=== PATIENT | male | born 1985 | race Caucasian/White ===

== ENCOUNTER 2016-11-03 16:55 | Emergency (ER) | payer OTHER ==
[~2016-11-03] VITALS: Ht 177.8 cm; Wt 96.4 kg
[~2016-11-03 16:55] MED LIST: LEVE750T PO; METH10CO11 PO; OMEG12006; VLT/75 PO; [UNRECOGNIZED DRUG - OTHER] PO
[2016-11-03 16:59] VITALS: TEMP 36.4; Ht 177.8 cm; Wt 96.4 kg
[2016-11-03] MEDS ORDERED: CARB1CAP8 PO ×2 (17:20)
[2016-11-03] MEDS ORDERED: NXM/40 PO (17:20)
[2016-11-03] MEDS ORDERED: MULT-506 PO (17:20)
[2016-11-03] MEDS ORDERED: IMT100 PO (17:20)
[2016-11-03] MEDS ORDERED: RANITIDINE HCL 50 MG/100 ML D5W IV STA (17:26)
[2016-11-03] MEDS ORDERED: LIDOCAINE HCL 2% VISC SOLN 20 ML UDC PO STA (17:26)
[2016-11-03] MEDS ORDERED: ALUMINUM/MAGNESIUM SUSP 30 ML UDC PO STA (17:26)
[2016-11-03] MEDS ORDERED: SODIUM CHLORIDE 0.9% 1000ML 1,000 ML IV STA (17:26)
[2016-11-03 17:52] VITALS: O2SAT 96
[2016-11-03 18:00] LABS: BASO % 0.4 %; BASO ABS # 0.03 K/uL (0-0.2); COMPLETE YES; EOS % 2.4 %; HEMATOCRIT 45.4 % (42-52); IG% 0.3 %; LYMPH ABS # 1.99 K/uL (1.2-3.4); MEAN CELL VOLUME 85.8 fL (80-100); MEAN CORPUSCULAR HEMOGLOBIN 30.1 pg (25-34); MEAN PLATELET VOLUME 9.7 fL (7.4-10.4); MONO % 10.2 %; NEUT % 59.7 %; PLATELET COUNT 164 K/uL (130-400); RED BLOOD COUNT 5.29 M/uL (4.7-6.1); WHITE BLOOD COUNT 7.36 K/uL (4.8-10.8)
[2016-11-03 18:07] LABS: PARTIAL THROMBOPLASTIN RATIO 0.9; PROTHROMBIN TIME (PATIENT) 10.4 SECONDS (9.0-12.0)
--- NOTE | 2016-11-03 18:15 | DIAGNOSTIC IMAGING REPORT ---
SINGLE VIEW CHEST CLINICAL HISTORY: GI bleeding. FINDINGS: An AP, portable, upright chest radiograph is obtained. No prior studies are available for comparison at the time of dictation. The examination is degraded by portable technique, apical lordotic positioning, and patient rotation. The cardiomediastinal silhouette is unremarkable. The lungs and pleural spaces are clear. No pneumothorax is seen. The bony thorax is grossly intact. IMPRESSION: No active disease in the chest. Electronically signed by: Travon Forte M.D. 11/03/2016 6:14 PM Dictated Date/Time: 11/03/2016 6:13 PM
[2016-11-03 18:22] LABS: BLOOD UREA NITROGEN 17 mg/dl (7-18); BUN/CREATININE RATIO 12.7 (10-20); CALCIUM 9.2 mg/dl (8.5-10.1); CARBON DIOXIDE 26 mmol/L (21-32); CHLORIDE 107 mmol/L (98-107); GLUCOSE 94 mg/dl (70-99); POTASSIUM 4.4 mmol/L (3.5-5.1); SODIUM 139 mmol/L (136-145)
[2016-11-03 18:25] LABS: ALKALINE PHOSPHATASE 91 U/L (45-117); ALT/SGPT 140 U/L (12-78); AST/SGOT 40 U/L (15-37)
[2016-11-03] MEDS ORDERED: MoRPHine SULFATE 4 MG/ML 1 ML CARP\\VIAL IV STA (18:52)
[2016-11-03] MEDS ORDERED: ONDANSETRON INJ 2 MG/ML 2 ML VIAL IV STA (18:52)
--- NOTE | 2016-11-03 21:00 | DIAGNOSTIC IMAGING REPORT ---
ULTRASOUND RIGHT UPPER QUADRANT ABDOMEN CLINICAL HISTORY: Epigastric abdominal pain. COMPARISON STUDY: Abdominal radiograph dated 12/06/2014. TECHNIQUE: Real-time, grayscale, and color flow sonography of the right upper quadrant of the abdomen was performed. Images are reviewed in the transverse and longitudinal planes. FINDINGS: Liver: The liver is top normal in size and demonstrates heterogeneously increased echotexture consistent with hepatic steatosis. There is no intrahepatic biliary ductal dilatation. The main portal vein is patent. Gallbladder: The gallbladder is normal in appearance. No gallstones are identified. There is no gallbladder wall thickening or pericholecystic fluid. A sonographic Dong's sign is reportedly absent. The common bile duct measures up to 0.5 cm in diameter. Pancreas: Visualized portions of the pancreatic head and body are normal in appearance. The splenic vein is patent. Right kidney: Survey images of the right kidney demonstrate normal size and echotexture. There is no hydronephrosis. Ascites: None. IMPRESSION: 1. No acute sonographic abnormal is identified. No gallstones are seen. 2. Hepatic steatosis. Electronically signed by: Travon Forte M.D. 11/03/2016 8:59 PM Dictated Date/Time: 11/03/2016 8:57 PM
[2016-11-03 22:11] VITALS: BP 128/76; PULSE 86; O2SAT 99
--- NOTE | 2016-11-03 23:07 | EMERGENCY ROOM VISIT NOTE ---
History First contact with patient: 17:13 Chief Complaint: ABDOMINAL PAIN Stated Complaint: ABD PAIN History of Present Illness The patient is a 31 year old male who presents to the Emergency Room with complaints of epigastric pain. The patient reports a history of severe esophagitis, undergoing an EGD on 10/23/16 at [facility] with Dr. Liam Hamilton. The patient had a previous EGD performed in August. Prior to his last EGD, he was on Nexium 40 mg twice daily, and was lowered to Nexium 40 mg daily. His next appointment is in mid November. The patient reports that he has had generalized epigastric discomfort since his procedure. The patient reports that he had black stools this past Friday and , but they have since cleared. He denies any pain radiating into the chest, neck, shoulder or back. He denies any nausea, vomiting, fever or chills. He has no alleviating or aggravating factors for his pain, and currently rates his discomfort a 6 out of 10. The patient is refraining from NSAIDs, alcohol and caffeine. Review of Systems HEENT: Denies dizziness, visual problems, hearing loss, tinnitus. Denies difficulty swallowing or oral lesions. PULMONARY: Denies cough, shortness of breath, sputum production or hemoptysis. CARDIOVASCULAR: Denies chest pain, palpitations, dyspnea on exertion, orthopnea or peripheral edema. GASTROINTESTINAL: Denies diarrhea, constipation, nausea or vomiting, otherwise see history of present illness. GENITOURINARY: Denies dysuria, frequency, urgency or nocturia. NEUROLOGIC: Denies history of epilepsy, CVA, TIA or chronic headaches. MUSCULOSKELETAL: Denies history of joint tenderness/swelling. SKIN: Denies rashes or lesions. PSYCHIATRIC: Denies history of depression or mental illness. ENDOCRINE: Denies history of diabetes or thyroid disorders. Past Medical/Surgical History Medical Problems: (1) Back strain (2) Seizure Surgical Problems: (1) Hx of tonsillectomy Family History Diabetes mellitus FH: seizures Social History Smoking Status: Current Every Day Smoker Alcohol Use: occasionally Marital Status: Housing Status: lives with family Occupation Status: employed Current/Historical Medications Scheduled Carbamazepine (Carbatrol Er), 200 MG PO QAM Carbamazepine (Carbatrol Er), 400 MG PO HS Esomeprazole Magnesium (Nexium), 40 MG PO DAILY Multivitamin (Multivitamin), 1 TAB PO DAILY Scheduled PRN Sumatriptan Succinate (Imitrex), 100 MG PO UD PRN for Migraine Allergies Coded Allergies: No Known Allergies (Unverified , 12/15/13) Physical Exam Vital Signs Date Time Temp Pulse Resp B/P (MAP) Pulse Ox O2 Delivery O2 Flow Rate FiO2 11/03/16 22:11 86 20 128/76 99 11/03/16 20:45 79 20 131/88 98 Room Air 11/03/16 18:55 80 20 126/86 98 11/03/16 17:52 96 Room Air 11/03/16 17:50 77 11/03/16 16:59 36.4 79 18 141/89 96 Room Air Physical Exam CONSTITUTIONAL: Healthy and well nourished. Alert and oriented X 3 with positive affect. Patient appears in mild to moderate discomfort with his epigastric pain. HEENT: Normocephalic, atraumatic. Pupils equal, round and reactive. No scleral icterus or conjunctival pallor. NECK: Full active range of motion without discomfort. No JVD or carotid bruits. RESPIRATORY: Clear to auscultation bilaterally with no wheezing, crackles, rhonchi or stridor. CARDIOVASCULAR: Regular rate and rhythm with no murmurs, rubs or gallops. GASTROINTESTINAL: Bowel sounds present in all quadrants. Should has generalized epigastric tenderness to palpation. No obvious hepatosplenomegaly. Negative CVA tenderness. Negative McBurney's point tenderness. No abdominal rigidity, guarding or rebound. MUSCULOSKELETAL: Full range of motion of all joints without discomfort. Patient has no tenderness to palpation over the xiphoid or lower chest wall. INTEGUMENTARY: No rash or other significant dermatologic conditions noted. HEMATOLOGIC: No ecchymosis or petechiae. NEUROLOGIC: No focal neurologic deficits noted. Medical Decision & Procedures ER Provider Diagnostic Interpretation: My interpretation of an ECG shows a normal sinus rhythm of [address] elevation or other conduction abnormality. My interpretation of a portable chest x-ray does not show any obvious subdiaphragmatic air, pneumothorax, pneumonia or cardiac prominence. Radiologist report is as follows: SINGLE VIEW CHEST CLINICAL HISTORY: GI bleeding. FINDINGS: An AP, portable, upright chest radiograph is obtained. No prior studies are available for comparison at the time of dictation. The examination is degraded by portable technique, apical lordotic positioning, and patient rotation. The cardiomediastinal silhouette is unremarkable. The lungs and pleural spaces are clear. No pneumothorax is seen. The bony thorax is grossly intact. IMPRESSION: No active disease in the chest. Limited abdominal ultrasound does not show any evidence for cholecystitis or other concerning findings. Radiologist report is as follows: ULTRASOUND RIGHT UPPER QUADRANT ABDOMEN CLINICAL HISTORY: Epigastric abdominal pain. COMPARISON STUDY: Abdominal radiograph dated 12/06/2014. TECHNIQUE: Real-time, grayscale, and color flow sonography of the right upper quadrant of the abdomen was performed. Images are reviewed in the transverse and longitudinal planes. FINDINGS: Liver: The liver is top normal in size and demonstrates heterogeneously increased echotexture consistent with hepatic steatosis. There is no intrahepatic biliary ductal dilatation. The main portal vein is patent. Gallbladder: The gallbladder is normal in appearance. No gallstones are identified. There is no gallbladder wall thickening or pericholecystic fluid. A sonographic Dong's sign is reportedly absent. The common bile duct measures up to 0.5 cm in diameter. Pancreas: Visualized portions of the pancreatic head and body are normal in appearance. The splenic vein is patent. Right kidney: Survey images of the right kidney demonstrate normal size and echotexture. There is no hydronephrosis. Ascites: None. IMPRESSION: 1. No acute sonographic abnormal is identified. No gallstones are seen. 2. Hepatic steatosis. Laboratory Results 11/03/16 17:46 Red Blood Count 5.29, Mean Corpuscular Volume 85.8, Mean Corpuscular Hemoglobin 30.1, Mean Corpuscular Hemoglobin Concent 35.0, Mean Platelet Volume 9.7, Neutrophils (%) (Auto) 59.7, Lymphocytes (%) (Auto) 27.0, Monocytes (%) (Auto) 10.2, Eosinophils (%) (Auto) 2.4, Basophils (%) (Auto) 0.4, Neutrophils # (Auto ) 4.39, Lymphocytes # (Auto) 1.99, Monocytes # (Auto) 0.75, Eosinophils # (Auto ) 0.18, Basophils # (Auto) 0.03 11/03/16 17:46 Test 11/03/16 17:46 White Blood Count 7.36 K/uL (4.8-10.8) Red Blood Count 5.29 M/uL (4.7-6.1) Hemoglobin 15.9 g/dL (14.0-18.0) Hematocrit 45.4 % (42-52) Mean Corpuscular Volume 85.8 fL (80-100) Mean Corpuscular Hemoglobin 30.1 pg (25-34) Mean Corpuscular Hemoglobin Concent 35.0 g/dl (32-36) Platelet Count 164 K/uL (130-400) Mean Platelet Volume 9.7 fL (7.4-10.4) Neutrophils (%) (Auto) 59.7 % Lymphocytes (%) (Auto) 27.0 % Monocytes (%) (Auto) 10.2 % Eosinophils (%) (Auto) 2.4 % Basophils (%) (Auto) 0.4 % Neutrophils # (Auto) 4.39 K/uL (1.4-6.5) Lymphocytes # (Auto) 1.99 K/uL (1.2-3.4) Monocytes # (Auto) 0.75 K/uL (0.11-0.59) Eosinophils # (Auto) 0.18 K/uL (0-0.5) Basophils # (Auto) 0.03 K/uL (0-0.2) RDW Standard Deviation 39.7 fL (36.4-46.3) RDW Coefficient of Variation 12.5 % (11.5-14.5) Immature Granulocyte % (Auto) 0.3 % Immature Granulocyte # (Auto) 0.02 K/uL (0.00-0.02) Prothrombin Time 10.4 SECONDS (9.0-12.0) Prothromb Time International Ratio 1.0 (0.9-1.1) Activated Partial Thromboplast Time 24.3 SECONDS (21.0-31.0) Partial Thromboplastin Ratio 0.9 Anion Gap 6.0 mmol/L (3-11) Est Creatinine Clear Calc Drug Dose 96.8 ml/min Estimated GFR () 84.9 Estimated GFR (Non- 73.2 BUN/Creatinine Ratio 12.7 (10-20) Calcium Level 9.2 mg/dl (8.5-10.1) Total Bilirubin 0.2 mg/dl (0.2-1) Direct Bilirubin < 0.1 mg/dl (0-0.2) Aspartate Amino Transf (AST/SGOT) 40 U/L (15-37) Alanine Aminotransferase (ALT/SGPT) 140 U/L (12-78) Alkaline Phosphatase 91 U/L (45-117) Total Creatine Kinase 99 U/L (39-308) Total Protein 7.0 gm/dl (6.4-8.2) Albumin 3.5 gm/dl (3.4-5.0) Lipase 201 U/L (73-393) Hepatitis B Surface Antigen NEG (NEG) Hepatitis C Antibody PRELIM POS (NEG) The above labs were reviewed. LFTs are elevated, otherwise remaining labs are grossly normal. The patient was unable to provide a stool sample, and refused stool Hemoccult rectal testing or digital rectal exam. Medications Administered Medications (Trade) Dose Ordered Sig/Macho Route Start Time Stop Time Status Last Admin Dose Admin Sodium Chloride 1,000 ml @ 999 mls/hr Q1H1M STAT IV 11/03/16 17:26 11/03/16 18:26 DC 11/03/16 17:51 999 MLS/HR Ranitidine HCl (zANTac IV) 50 mg NOW STAT IV 11/03/16 17:26 11/03/16 17:29 DC 11/03/16 17:51 50 MG Lidocaine HCl (Viscous Lidocaine 2% Soln) 10 ml NOW STAT PO 11/03/16 17:26 11/03/16 17:29 DC 11/03/16 17:52 10 ML Al Hydroxide/Mg Hydroxide (Maalox Susp) 30 ml NOW STAT PO 11/03/16 17:26 11/03/16 17:29 DC 11/03/16 17:52 30 ML Morphine Sulfate (MoRPHine SULFATE INJ) 4 mg NOW STAT IV 11/03/16 18:52 11/03/16 18:54 DC 11/03/16 19:02 4 MG Ondansetron HCl (Zofran Inj) 4 mg NOW STAT IV 11/03/16 18:52 11/03/16 18:54 DC 11/03/16 19:02 4 MG Procedure 1. IV hydration: The patient received a liter normal saline bolus 2. IV medications: Zantac 150 mg IVP ED Course Patient history and physical exam were performed. Nurse's notes were reviewed. Vital signs were reviewed and normal. The patient is normotensive and not tachycardic. He is also afebrile. His clinical exam shows epigastric tenderness to palpation. I also reviewed the patient's EKG report, showing a 4 cm hiatal hernia, erythematous mucosa in the antrum, Z line irregular, 37 cm from the incisors. This was biopsied. Duodenum was normal, and the hard rock drill operator mentions complete resolution of the previously noted esophagitis. His PPI was reduced to once daily. Given the patient's persistent symptoms, I did suggest performing additional lab work in case he does have an active bleed, which is unlikely since his stools have cleared. IV access was established, and labs were drawn. The patient was administered a liter normal saline and Zantac 150 mg IVP. He was also administered a GI cocktail. An ECG and portable chest x-ray were normal. Review of labs shows elevated LFTs, otherwise remaining labs were grossly normal. Given the elevated LFT values, I did elect to perform an ultrasound of the abdomen which showed no acute findings. The patient was unable to provide a stool sample for Hemoccult testing, and also refused digital rectal exam or swabbing. With elevated LFTs, I ordered a hepatitis panel. Whenever back in to discuss the patient's normal ultrasound results, his was present and wanted to know if his studies could be elevated because of the patient's history of hepatitis C virus. This was not included on the patient's history sheet which was also reviewed prior to workup and ordering the hepatitis panel. Without having prior labs for comparison, I suspect this explains his elevated transaminases. I did suggest that he follow-up with his hard rock drill operator for further reevaluation and to discuss further treatment options. He was instructed to seek further emergent reevaluation for any worsening melena, coffee-ground emesis, fever or other concerning symptoms. I did encourage him to continue with his Nexium 40 mg daily as prescribed by his hard rock drill operator , and also had Zantac and Maalox/Gaviscon as needed for additional symptomatic relief. He was instructed to refrain from alcohol, NSAIDs and caffeine. The patient voiced understanding of all discharge instructions, and rated his pain a 4 out of 10 at the conclusion of my exam. Medical Decision Patient presents with complaint of melanotic stool for 2 days that has since cleared. His workup today does not show any anemia, evidence for renal failure , pancreatitis, cholecystitis or abdominal free air. The patient does have elevated LFTs likely secondary to his history of hepatitis C virus. At this point I will defer further workup to the patient's hard rock drill operator. Impression Primary Impression: Epigastric pain Additional Impressions: Esophagitis Hepatitis C virus Departure Information Referrals Chi Burkett DO (PCP) Patient Instructions My [facility] Problem Qualifiers Additional Impressions: Hepatitis C virus Viral hepatitis chronicity: chronic Hepatic coma status: without hepatic coma Qualified Codes: B18.2 - Chronic viral hepatitis C
[2016-11-08 16:38] LABS: HEPATITIS C RNA TMA QUAL Detected
== END 2016-11-03 22:12 | disposition home or self-care (01) ==
LOC: C.EDB 16:56
DX: K20.8 Other esophagitis (principal); R10.13 Epigastric pain; B19.20 Unspecified viral hepatitis C without hepatic coma; G40.909 Epilepsy, unspecified, not intractable, without status epilepticus; F17.200 Nicotine dependence, unspecified, uncomplicated; Z79.899 Other long term (current) drug therapy; Z98.890 Other specified postprocedural states; Z83.3 Family history of diabetes mellitus; Z82.0 Family history of epilepsy and other diseases of the nervous system

== ENCOUNTER → 2016-11-13 | Outpatient (CLI) | payer OTHER ==
[~2016-11-13] MED LIST changes: +CARB1CAP8 PO; +GADAVIST IV PRN; +IMT100 PO; -LEVE750T PO; -METH10CO11 PO; +MULT-506 PO; +NXM/40 PO; -OMEG12006; -VLT/75 PO; -[UNRECOGNIZED DRUG - OTHER] PO
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
== END | disposition home or self-care (01) ==
LOC: C.MRIBC 10:51
PROVIDERS: ATTEND Psychiatry & Neurology Neurology
DX: D33.2 Benign neoplasm of brain, unspecified (principal); G40.909 Epilepsy, unspecified, not intractable, without status epilepticus

== ENCOUNTER 2020-09-26 20:36 | Observation (INO) ==
[2020-09-26 22:41] LABS: Basophils # (auto) 0.01 K/uL (0-0.2); Basophils % (auto) 0.1 %; Eosinophils # (auto) 0.01 K/uL (0-0.5); Eosinophils % (auto) 0.1 %; Hematocrit (blood only) 41.8 % (42-52); Hemoglobin 14.8 g/dL (14.0-18.0); Immature Granulocytes # (auto) 0.02 K/uL (0.00-0.02); Immature Granulocytes % (auto) 0.2 %; Lymphocytes # (auto) 0.84 K/uL (1.2-3.4); Lymphocytes % (auto) 8.2 %; Mean Corpuscular Hemoglobin 30.8 pg (25-34); Mean Corpuscular Hgb Conc 35.4 g/dL (32-36); Mean Corpuscular Volume 87.1 fL (80-100); Mean Platelet Volume 11.7 fL (7.4-10.4); Monocytes # (auto) 1.07 K/uL (0.11-0.59); Monocytes % (auto) 10.4 %; Neutrophils # (auto) 8.33 K/uL (1.4-6.5); Platelet Count 108 K/uL (130-400); RDW Coefficient of Variation 12.9 % (11.5-14.5); RDW Standard Deviation 41.2 fL (36.4-46.3); White Blood Count 10.28 K/uL (4.8-10.8)
[2020-09-26 22:48] LABS: Albumin Level 3.8 gm/dl (3.4-5.0); BUN Creatinine Ratio 15.5 (10-20); Calcium 9.3 mg/dl (8.5-10.1); Creatinine Clr Calc Pharmacy 125.8 ml/min; Est GFR (African American) 117.6 ml/min; Est GFR (Non-African American) 101.4 ml/min; Potassium 3.7 mmol/L (3.5-5.1)
[2020-09-26 22:50] LABS: Albumin Globulin Ratio 1.1 (0.9-2); Bilirubin,Total 1.1 mg/dl (0.2-1); Globulin 3.4 gm/dl (2.5-4.0); Total Protein 7.2 gm/dl (6.4-8.2)
[2020-09-26] MEDS ORDERED: SODIUM CHLORIDE 0.9% 1000ML 1,000 ML IV ONE (22:51)
[2020-09-26] MEDS ORDERED: ACETAMINOPHEN 1,000 MG/100 ML VIAL IV STA (22:51)
[2020-09-26] MEDS ORDERED: HYDROmorphone INJ 1 MG/ML SYRINGE IV PRN (22:51)
[2020-09-26] MEDS ORDERED: ONDANSETRON INJ 2 MG/ML 2 ML VIAL IV STA (22:52)
[2020-09-26] MEDS ORDERED: OPTIRAY 320 100ml IV ONE (23:30)
[2020-09-26 23:44] LABS: Appearance Urine Clear (Clear); Bilirubin Urine Negative (Negative); Blood Urine Negative (Negative); Color Urine Yellow; Glucose Urine UA Negative (Negative); Ketones Urine 2+ (Negative); Leukocyte Esterase Urine Negative (Negative); Nitrite Urine Negative (Negative); Protein Urine Negative (Negative); Specific Gravity Urine 1.017 (1.000-1.030); Urobilinogen Urine Negative (Negative); pH Urine >= 9.0 (4.5-7.5)
[2020-09-27] MEDS ORDERED: PIPERACILL/TAZOBAC CONSULT ACTIVE PRN ×2 (00:09→02:35)
[2020-09-27] MEDS ORDERED: PIPERACILLIN/TAZOBACTAM 4.5 GM/120 ML BAG IV ONE (00:09)
[2020-09-27] MEDS ORDERED: levoFLOXacin/D5W 750 MG/150 ML BAG IV STA (00:09)
--- NOTE | 2020-09-27 00:54 | Emergency Department Note ---
Impression & Plan Aspiration pneumonia of left lower lobe ED Provider Note NAME: EFE CAMACHO AGE: 35 SEX: M : 1985 ARRIVES VIA: Walk-In INFORMANT: Patient, ED PROVIDER(S): Christophe Arce MD CHIEF COMPLAINT: abd pain, chills, HPI: This is a 35-year-old male who presents emergency department complaining of abdominal pain and chills. The patient reports he had a colonoscopy done earlier today. He reports he got home and ate a meal. Since that time he has been vomiting complaining of abdominal pain as well as chills. He reports he has not taken anything for the vomiting and nothing appears to make the chills any better or worse. He describes the pain as a cramping sensation in his suprapubic area with radiation into the back. ROS: See above HPI for pertinent positives & negatives. A total of 10 systems reviewed and were otherwise negative. PAST MEDICAL HISTORY: See Below PAST SURGICAL HISTORY: See Below FAMILY HISTORY: See Below SOCIAL HISTORY: See Below HOME MEDICATIONS: See Below ALLERGIES: See Below VITALS: See Below PHYSICAL EXAMINATION: VITAL SIGNS - Vital signs and nursing notes were reviewed. GENERAL - 35-year-old male appearing stated age who is in no acute distress. Communicates well with provider and answers questions appropriately. SKIN - Without rashes. HEAD - NC/AT. EYES - PERRL with EOMI bilaterally. Sclera anicteric. Palpebral conjunctiva pink and moist with no injection noted. EARS - No deformities of external structures noted on gross examination bilaterally. NOSE - Midline and without cyanosis. No epistaxis or purulent drainage noted. Septum midline without deviation or septal hematoma noted. MOUTH/OROPHARYNX - Without perioral cyanosis. Buccal mucosa pink and moist and without leukoplakia. Tongue midline with equal elevation of palate bilaterally. No tonsillar hypertrophy, erythema, or exudates noted. NECK - Neck with FROM. Supple to palpation. No nuchal rigidity. LUNGS - Chest wall symmetric without accessory muscle use, intercostals retractions, or central cyanosis. Normal vesicular breath sounds CTA B/L. No wheezes, rales, or rhonchi appreciated. CARDIAC - RRR with S1/S2. No murmur, rubs, or gallops appreciated. ABDOMEN - Abdominal contour without pulsations or visible masses. BS normoactive all four quadrants. No tenderness, palpable masses, hepatosplenomegaly, or ascites noted. EXTREMITIES - No clubbing or peripheral cyanosis. No pretibial edema present. +3/5 radial, posterior tibial, and dorsalis pedis pulses palpated throughout. +5/5 strength noted in UE/LE bilaterally. NEUROLOGIC - Cranial nerves II through XII grossly intact. Sensory intact to light touch throughout. Patellar reflexes +2/4. PSYCH - A&Ox3 and cooperates fully with examiner. Pt is very pleasant and interacts well with examiner. MEDICAL DECISION MAKING: Patient was seen and evaluated as above in room A10. Review was performed of nursing notes and vital signs. I did review pertinent previous visits and patient history. After obtaining a thorough history and physical examination the above work up was performed. This is a 35-year-old male who presents emergency department complaining of rigors and chills along with vomiting. Using shared medical decision making with the patient he was sent for CAT scan of the abdomen and pelvis this is concerning for pneumonia in the lower lungs. Patient was reswabbed for Covid. He does have an elevation his white blood cell count. I did discuss the case with the platform worker we agreed to have the patient admitted overnight for observation. An order was placed for continuous cardiac monitoring. The monitor shows a rate of 93 with Normal Sinus rhythm. The patient was evaluated during a period of high volume and high acuity during the global COVID-19 pandemic, and that diagnosis was suspected/considered upon their initial presentation. Their evaluation, treatment and testing was consistent with current guidelines for patients who present with complaints or symptoms that may be related to COVID-19. Patient was seen while provider was wearing PPE. Triage Nursing notes reviewed. Prior medical records reviewed Vital Signs: reviewed and remarkable for no significant abnormalities Differential diagnosis: Reactive airway disease, pneumonia, pneumothorax, COPD, CHF, infections, cardiac ischemia, pulmonary embolism, musculoskeletal, gastrointestinal, as well as other pathologies. ER treatment provided: See below Laboratory studies: As stated above and show below. Imaging studies: Chest x-ray is concerning for left lower lobe pneumonia. CT abdomen pelvis with contrast: Normal appendix. No acute abnormality along the GI tract. Airspace opacities in the left lower lobe. Pneumonia or aspiration can cause this appearance. Liver gallbladder pancreas spleen and kidneys are unremarkable. 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" GERD (gastroesophageal reflux disease) Grand mal seizure LAST EVENT OCTOBER 2019 Hx of hepatitis C TREATED IN PAST Hypersomnia Migraine headache Surgical History Family history of reaction to anesthesia GRANDMOTHER SLOW TO WAKE UP History of anesthesia reaction SLOW TO WAKE UP History of arthroscopy RT/LEFT SHOULDER SURGERY History of esophagogastroduodenoscopy (EGD) History of tonsillectomy and adenoidectomy Hx of dilation of urethra [place] teeth removed Family History Mother Stroke Seizure Grandmother Kidney stones Uncle Diabetes Social History Smoking Status: Never smoker Second Hand Exposure: No; Hx Alcohol Use: Yes Alcohol type: wine Preferred Language: Tristanian Communication Ability: Effective Bird Tender Required: No Beliefs That Will Affect Care: Orthodoxy Orthodoxy Beliefs: JEHOVAH WITNESS Current Living Situation: Family Feels Safe at Home: Yes Assistive Devices: None Allergies Allergies Allergy/AdvReac Type Severity Reaction Status Date / Time No Known Allergies Allergy Verified 09/26/20 14:21 Home Meds Home Medications Medication Instructions Recorded Confirmed pantoprazole 40 mg tablet,delayed 40 mg PO BID 05/06/19 09/26/20 release Marijuana Dry [place] 1 dose INHALATION UD PRN 06/25/20 09/26/20 Marijuana Tincture 1 ml PO HS PRN 06/25/20 09/26/20 magnesium oxide 400 mg PO DAILY 07/10/20 09/26/20 diclofenac sodium 50 mg PO BID 09/25/20 09/26/20 multivitamin 1 tab PO DAILY 09/25/20 09/26/20 omega-3 fatty acids 1,000 mg PO DAILY 09/25/20 09/26/20 Previous Rx's Medication Instructions Recorded divalproex 500 mg tablet,delayed 1,000 mg PO BID 30 Days #120 tab 05/23/20 release sumatriptan succinate 100 mg tablet 100 mg PO .COMPLEX PRN #9 tab 08/17/20 brivaracetam 100 mg tablet 100 mg PO .COMPLEX #30 tab 08/30/20 brivaracetam 50 mg tablet 50 mg PO .COMPLEX #30 tab 08/30/20 amoxicillin-pot clavulanate 1 tab PO BID #10 tab 09/27/20 [Augmentin] Results & Data (ED) Vital Signs Vital Signs - 24 hr 09/26/20 20:43 09/26/20 22:00 09/26/20 22:05 Temperature 37.5 C Temperature Source Temporal Artery Scan Pulse Rate 108 H 88 94 H Pulse Rate [Right] Pulse Rate from SpO2 Sensor 90 95 H Respiratory Rate 16 27 H 31 H Respiratory Effort / Characteristics Non-Labored Spontaneous Respiratory Depth Normal Respiratory Pattern Regular Blood Pressure 158/78 H 136/80 Blood Pressure [Right Arm] Blood Pressure Mean 104 98 Blood Pressure Mean [Right Arm] Blood Pressure Position Sitting Blood Pressure Position [Right Arm] Pulse Oximetry 96 95 96 Oxygen Delivery Method Room Air Sepsis Recent Fever Within 48 Hours No Sepsis New/Unexplained Change in Mental Status No Sepsis Action Taken by Nursing No Action Required 09/26/20 22:10 09/26/20 22:15 09/26/20 22:20 Temperature Temperature Source Pulse Rate 100 H 92 H 94 H Pulse Rate [Right] Pulse Rate from SpO2 Sensor 101 H 93 H 94 H Respiratory Rate 20 26 H 26 H Respiratory Effort / Characteristics Respiratory Depth Respiratory Pattern Blood Pressure 139/81 Blood Pressure [Right Arm] Blood Pressure Mean 100 Blood Pressure Mean [Right Arm] Blood Pressure Position Blood Pressure Position [Right Arm] Pulse Oximetry 95 95 96 Oxygen Delivery Method Sepsis Recent Fever Within 48 Hours Sepsis New/Unexplained Change in Mental Status Sepsis Action Taken by Nursing 09/26/20 22:30 09/26/20 22:31 09/26/20 22:40 Temperature Temperature Source Pulse Rate 94 H 96 H 95 H Pulse Rate [Right] Pulse Rate from SpO2 Sensor 93 H 96 H 95 H Respiratory Rate 30 H 27 H 26 H Respiratory Effort / Characteristics Respiratory Depth Respiratory Pattern Blood Pressure 138/77 Blood Pressure [Right Arm] Blood Pressure Mean 97 Blood Pressure Mean [Right Arm] Blood Pressure Position Blood Pressure Position [Right Arm] Pulse Oximetry 95 96 96 Oxygen Delivery Method Sepsis Recent Fever Within 48 Hours Sepsis New/Unexplained Change in Mental Status Sepsis Action Taken by Nursing 09/26/20 22:46 09/26/20 22:50 09/26/20 23:00 Temperature Temperature Source Pulse Rate 95 H 97 H 91 H Pulse Rate [Right] Pulse Rate from SpO2 Sensor 96 H 95 H 92 H Respiratory Rate 14 15 22 Respiratory Effort / Characteristics Respiratory Depth Respiratory Pattern Blood Pressure 114/73 124/79 Blood Pressure [Right Arm] Blood Pressure Mean 86 94 Blood Pressure Mean [Right Arm] Blood Pressure Position Blood Pressure Position [Right Arm] Pulse Oximetry 96 94 96 Oxygen Delivery Method Sepsis Recent Fever Within 48 Hours Sepsis New/Unexplained Change in Mental Status Sepsis Action Taken by Nursing 09/26/20 23:01 09/26/20 23:13 Temperature Temperature Source Pulse Rate 93 H Pulse Rate [Right] 93 H Pulse Rate from SpO2 Sensor 91 H Respiratory Rate 19 16 Respiratory Effort / Characteristics Non-Labored Spontaneous Respiratory Depth Normal Respiratory Pattern Blood Pressure Blood Pressure [Right Arm] 124/79 Blood Pressure Mean Blood Pressure Mean [Right Arm] 94 Blood Pressure Position Blood Pressure Position [Right Arm] Lying Pulse Oximetry 97 95 Oxygen Delivery Method Room Air Sepsis Recent Fever Within 48 Hours Sepsis New/Unexplained Change in Mental Status Sepsis Action Taken by Nursing Laboratory Data Result diagrams: 09/26/20 21:45 09/26/20 21:45 Lab Results 09/26/20 09/26/20 09/26/20 Range/Units 21:35 21:45 21:45 WBC 10.28 (4.8-10.8) K/uL RBC 4.80 (4.7-6.1) M/uL Hgb 14.8 (14.0-18.0) g/dL Hct 41.8 L (42-52) % MCV 87.1 (80-100) fL MCH 30.8 (25-34) pg MCHC 35.4 (32-36) g/dL RDW Std Deviation 41.2 (36.4-46.3) fL RDW Coeff of Kendra 12.9 (11.5-14.5) % Plt Count 108 L (130-400) K/uL MPV 11.7 H (7.4-10.4) fL Immature Gran % (Auto) 0.2 % Neut % (Auto) 81.0 % Lymph % (Auto) 8.2 % [place] % (Auto) 10.4 % Eos % (Auto) 0.1 % Baso % (Auto) 0.1 % Neut # (Auto) 8.33 H (1.4-6.5) K/uL Lymph # (Auto) 0.84 L (1.2-3.4) K/uL [place] # (Auto) 1.07 H (0.11-0.59) K/uL Eos # (Auto) 0.01 (0-0.5) K/uL Baso # (Auto) 0.01 (0-0.2) K/uL Immature Gran # (Auto) 0.02 (0.00-0.02) K/uL Sodium 137 (136-145) mmol/L Potassium 3.7 (3.5-5.1) mmol/L Chloride 105 (98-107) mmol/L Carbon Dioxide 27 (21-32) mmol/L Anion Gap 5.0 (3-11) BUN 15 (7-18) mg/dl Creatinine 0.97 (0.6-1.4) mg/dl Est Cr Clr Drug Dosing 125.8 ml/min Est GFR ( Amer) 117.6 ml/min Est GFR (Non-Af Amer) 101.4 ml/min BUN/Creatinine Ratio 15.5 (10-20) Glucose 86 (70-99) mg/dl Calcium 9.3 (8.5-10.1) mg/dl Total Bilirubin 1.1 H (0.2-1) mg/dl AST 20 (15-37) U/L ALT 30 (12-78) U/L Alkaline Phosphatase 66 (45-117) U/L Total Protein 7.2 (6.4-8.2) gm/dl Albumin 3.8 (3.4-5.0) gm/dl Globulin 3.4 (2.5-4.0) gm/dl Albumin/Globulin Ratio 1.1 (0.9-2) Urine Color Yellow Urine Appearance Clear (Clear) Urine pH >= 9.0 H (4.5-7.5) Ur Specific [place] 1.017 (1.000-1.030) Urine Protein Negative (Negative) Urine Glucose (UA) Negative (Negative) Urine Ketones 2+ H (Negative) Urine Blood Negative (Negative) Urine Nitrite Negative (Negative) Urine Bilirubin Negative (Negative) Urine Urobilinogen Negative (Negative) Ur Leukocyte Esterase Negative (Negative) COVID-19 Eval Order SARS-CoV-2 (PCR) (Negative) 09/27/20 09/27/20 Range/Units 00:15 00:15 WBC (4.8-10.8) K/uL RBC (4.7-6.1) M/uL Hgb (14.0-18.0) g/dL Hct (42-52) % MCV (80-100) fL MCH (25-34) pg MCHC (32-36) g/dL RDW Std Deviation (36.4-46.3) fL RDW Coeff of Kendra (11.5-14.5) % Plt Count (130-400) K/uL MPV (7.4-10.4) fL Immature Gran % (Auto) % Neut % (Auto) % Lymph % (Auto) % [place] % (Auto) % Eos % (Auto) % Baso % (Auto) % Neut # (Auto) (1.4-6.5) K/uL Lymph # (Auto) (1.2-3.4) K/uL [place] # (Auto) (0.11-0.59) K/uL Eos # (Auto) (0-0.5) K/uL Baso # (Auto) (0-0.2) K/uL Immature Gran # (Auto) (0.00-0.02) K/uL Sodium (136-145) mmol/L Potassium (3.5-5.1) mmol/L Chloride (98-107) mmol/L Carbon Dioxide (21-32) mmol/L Anion Gap (3-11) BUN (7-18) mg/dl Creatinine (0.6-1.4) mg/dl Est Cr Clr Drug Dosing ml/min Est GFR ( Amer) ml/min Est GFR (Non-Af Amer) ml/min BUN/Creatinine Ratio (10-20) Glucose (70-99) mg/dl Calcium (8.5-10.1) mg/dl Total Bilirubin (0.2-1) mg/dl AST (15-37) U/L ALT (12-78) U/L Alkaline Phosphatase (45-117) U/L Total Protein (6.4-8.2) gm/dl Albumin (3.4-5.0) gm/dl Globulin (2.5-4.0) gm/dl Albumin/Globulin Ratio (0.9-2) Urine Color Urine Appearance (Clear) Urine pH (4.5-7.5) Ur Specific [place] (1.000-1.030) Urine Protein (Negative) Urine Glucose (UA) (Negative) Urine Ketones (Negative) Urine Blood (Negative) Urine Nitrite (Negative) Urine Bilirubin (Negative) Urine Urobilinogen (Negative) Ur Leukocyte Esterase (Negative) COVID-19 Eval Order Covid19 at [facility] SARS-CoV-2 (PCR) NEGATIVE (Negative) Administered Medications Discontinued Medications Acetaminophen (Acetaminophen 325 Mg Tab) 650 mg PO Q4H PRN PRN Reason: Pain or Fever Stop: 10/27/20 02:34 Last Admin: 09/27/20 04:22 Dose: 650 mg Documented by: [id number] Diclofenac Sodium (Diclofenac Sodium 25 Mg Tabdr) 50 mg PO BID MARISELA Stop: 10/27/20 08:59 Last Admin: 09/27/20 07:42 Dose: 50 mg Documented by: [id number] Divalproex Sodium (Divalproex Delay Release 500 Mg Tab) 1,000 mg PO BID MARISELA Stop: 10/27/20 08:59 Last Admin: 09/27/20 07:41 Dose: 1,000 mg Documented by: [id number] Fish Oil ([place]-3 (Purified Fish Oil) 1 Gm Cap) 1 gm PO DAILY MARISELA Stop: 10/27/20 08:59 Last Admin: 09/27/20 07:42 Dose: 1 gm Documented by: [id number] Hydromorphone HCl (Hydromorphone Inj 1 Mg/Ml Syringe) 1 mg IV Q15M PRN PRN Reason: Pain Stop: 10/10/20 22:50 Last Admin: 09/26/20 23:06 Dose: 1 mg Documented by: [id number] Sodium Chloride (Nss 1000ml) 1,000 mls @ 999 mls/hr IV .Q1H1M ONE Stop: 09/26/20 23:51 Last Infusion: 09/27/20 00:07 Dose: 0 mls/hr Documented by: [id number] Admin: 09/26/20 23:06 Dose: 999 mls/hr Documented by: [id number] Acetaminophen (Ofirmev) 1,000 mg in 100 mls @ 400 mls/hr IV NOW STA Stop: 09/26/20 23:05 Last Infusion: 09/26/20 23:26 Dose: 0 mls/hr Documented by: [id number] Admin: 09/26/20 23:06 Dose: 400 mls/hr Documented by: [id number] Piperacillin Sod/Tazobactam Sod (Zosyn) 4.5 gm in 120 mls @ 240 mls/hr IV NOW ONE Stop: 09/27/20 00:38 Last Infusion: 09/27/20 01:10 Dose: 0 mls/hr Documented by: [id number] Admin: 09/27/20 00:32 Dose: 240 mls/hr Documented by: [id number] Levofloxacin/Dextrose (Levaquin/D5w) 750 mg in 150 mls @ 100 mls/hr IV NOW STA Stop: 09/27/20 01:38 Last Infusion: 09/27/20 02:52 Dose: 0 mls/hr Documented by: [id number] Admin: 09/27/20 01:10 Dose: 100 mls/hr Documented by: [id number] Potassium Chloride/Sodium Chloride (Normal Saline W/20 Meq Kcl) 20 meq in 1,000 mls @ 100 mls/hr IV .Q10H MARISELA Stop: 10/27/20 02:34 Last Infusion: 09/27/20 08:19 Dose: 0 mls/hr Documented by: [id number] Admin: 09/27/20 04:11 Dose: 100 mls/hr Documented by: [id number] Piperacillin Sod/Tazobactam Sod (Zosyn) 4.5 gm in 120 mls @ 30 mls/hr IV Q8H MARISELA Stop: 10/04/20 05:59 Last Infusion: 09/27/20 08:59 Dose: 0 mls/hr Documented by: [id number] Admin: 09/27/20 04:56 Dose: 30 mls/hr Documented by: [id number] Ioversol (Optiray 320 100ml) 100 ml IV ONCE ONE Stop: 09/26/20 23:31 Last Admin: 09/26/20 23:31 Dose: 83 ml Documented by: [id number] Magnesium Oxide (Magnesium Oxide 400 Mg Tab) 400 mg PO DAILY MARISELA Stop: 10/27/20 08:59 Last Admin: 09/27/20 07:42 Dose: 400 mg Documented by: [id number] Miscellaneous (Brivaracetam 50mg & 100mg Tabs: Order Awaiting Action) 1 ea N/A Q2H MARISELA Stop: 10/27/20 07:59 Last Admin: 09/27/20 07:42 Dose: Not Given Documented by: [id number] Multivitamins (Multivitamin Tab) 1 tab PO DAILY MARISELA Stop: 10/27/20 08:59 Last Admin: 09/27/20 07:42 Dose: 1 tab Documented by: [id number] Ondansetron HCl (Ondansetron Inj 2 Mg/Ml 2 Ml Vial) 4 mg IV NOW STA Stop: 09/26/20 22:53 Last Admin: 09/26/20 23:06 Dose: 4 mg Documented by: [id number] Ondansetron HCl (Ondansetron Inj 2 Mg/Ml 2 Ml Vial) 4 mg IV Q6H PRN PRN Reason: Nausea And Vomiting Stop: 10/27/20 04:48 Last Admin: 09/27/20 04:56 Dose: 4 mg Documented by: [id number] Ondansetron HCl (Ondansetron 2 Mg Od Tab) 2 mg PO Q4H PRN PRN Reason: Nausea And Vomiting Stop: 10/27/20 08:29 Last Admin: 09/27/20 08:49 Dose: 2 mg Documented by: [id number] Pantoprazole Sodium (Pantoprazole 40 Mg Tab) 40 mg PO BID [facility] Stop: 10/27/20 02:34 Last Admin: 09/27/20 07:42 Dose: 40 mg Documented by: [id number] Admin: 09/27/20 04:56 Dose: 40 mg Documented by: [id number] Discharge Plan Visit Data Chief Complaint: Illness Stated Complaint: COLONOSCOPY TODAY RUNNING FEVER, VOMITING ED Provider: Christophe Arce Discharge Problem: Aspiration pneumonia of left lower lobe Patient Disposition: Admitted As Inpatient Discharge Instructions Interventions: ED Discharge Assessment Last Done: 09/27/20 01:44 Discharge Problem: Aspiration pneumonia of left lower lobe Qualifiers: Aspiration pneumonia type: unspecified Qualified Code(s): J69.0 - Pneumonitis due to inhalation of food and vomit
--- NOTE | 2020-09-27 01:21 | History & Physical Report ---
Date of Service September 27, 2020 Assessment & Plan (1) Aspiration pneumonia of left lower lobe: Aspiration pneumonia of left lower lobe- Patient had an uneventful colonoscopy. He denies difficulty breathing until after he vomited at home. CT of abdomen/pelvis most consistent with aspiration pneumonia of left lower lobe. Continue Zosyn 4.5 g IV every 8 hours Duonebs every 2 hours when necessary. Follow clinical exam Present on Admission?: Yes (2) Dysembryoplastic neuroepithelial tumor (DNET) of brain: DNET of brain/seizure disorder/migraine headache- Continue usual home medications of divalproex delayed release and brivaracetam Continue sumatriptan succinate as needed Present on Admission?: Yes (3) Migraine headache: See above Present on Admission?: Yes (4) Seizure disorder: See above Present on Admission?: Yes (5) Esophagitis: Continue pantoprazole 40 mg daily Present on Admission?: Yes History of Present Illness Chief Complaint: The patient presents to the emergency department with complaint of abdominal pain, fever and chills, and mild shortness of breath after vomiting upon returning home, after eating, following a colonoscopy earlier in the day Primary Care Provider: Chi Burkett The patient is a 35-year-old male with a past medical history including seizure disorder, DNET of brain, anxiety, migraine headache, major depression, tobacco abuse, hepatitis C virus, esophagitis and hypersomnia. He underwent an uneventful colonoscopy earlier in the day, and then went home afterwards. He did eat supper, slept for a while, and when he woke up reports emesis of a large volume of food stuffs, and then became short of breath. For this reason he presented to the ED for assessment. Allergies Allergy/AdvReac Type Severity Reaction Status Date / Time No Known Allergies Allergy Verified 09/26/20 14:21 Home Medications Medication Instructions Recorded Confirmed Type pantoprazole 40 mg tablet,delayed 40 mg PO BID 05/06/19 09/26/20 History release divalproex 500 mg tablet,delayed 1,000 mg PO BID 30 Days #120 tab 05/23/20 09/26/20 Rx release Marijuana Dry [place] 1 dose INHALATION UD PRN 06/25/20 09/26/20 History Marijuana Tincture 1 ml PO HS PRN 06/25/20 09/26/20 History magnesium oxide 400 mg PO DAILY 07/10/20 09/26/20 History sumatriptan succinate 100 mg tablet 100 mg PO .COMPLEX PRN #9 tab 08/17/20 09/26/20 Rx brivaracetam 100 mg tablet 100 mg PO .COMPLEX #30 tab 08/30/20 09/26/20 Rx brivaracetam 50 mg tablet 50 mg PO .COMPLEX #30 tab 08/30/20 09/26/20 Rx diclofenac sodium 50 mg PO BID 09/25/20 09/26/20 History multivitamin 1 tab PO DAILY 09/25/20 09/26/20 History omega-3 fatty acids 1,000 mg PO DAILY 09/25/20 09/26/20 History Past Med/Surg History Medical History Anxiety and depression Dysembryoplastic neuroepithelial tumor (DNET) of brain "I HAVE A LESION IN MY LEFT TEMPRAL LOBE LOCATION" GERD (gastroesophageal reflux disease) Grand mal seizure LAST EVENT OCTOBER 2019 Hx of hepatitis C TREATED IN PAST Hypersomnia Migraine headache Surgical History Family history of reaction to anesthesia GRANDMOTHER SLOW TO WAKE UP History of anesthesia reaction SLOW TO WAKE UP History of arthroscopy RT/LEFT SHOULDER SURGERY History of esophagogastroduodenoscopy (EGD) History of tonsillectomy and adenoidectomy Hx of dilation of urethra [place] teeth removed Family History Mother Stroke Seizure Grandmother Kidney stones Uncle Diabetes Social History Smoking Status: Never smoker Second Hand Exposure: No; Do You Dip or Chew Tobacco: No; Tobacco Cessation Education Requested by Patient: No Hx Alcohol Use: Yes Alcohol type: wine Preferred Language: Hungarian Communication Ability: Effective Behavioral Health Professional Required: No Beliefs That Will Affect Care: Mosque Mosque Beliefs: JEHOVAH WITNESS Current Living Situation: Family Other Information That Helps Us Care for You: No Feels Safe at Home: Yes Assistive Devices: None Review of Systems Review of Systems: The patient denies chest pain, palpitations, cough, lower extremity swelling, sore throat, sweats, weight change, fatigue, diarrhea , constipation, blood in urine or stool, dysuria, urinary frequency or urgency, lightheadedness, dizziness, headache, memory loss, loss of consciousness, rash, abnormal bruising or bleeding, imbalance, focal or generalized weakness, numbness or tingling in arms or legs, generalized arthralgias or myalgias, back or neck pain, or night sweats. The review of systems is otherwise negative other than for that already noted above, and at least 10 systems have been reviewed. Physical Exam Physical Exam: The patient is awake, alert and oriented 3, well developed and well nourished, normocephalic and atraumatic, lying in bed and in no acute distress. HEENT--PERRL, EOMI, mucous membranes and oropharynx normal. Neck--supple. No JVD. No bruits. Thyroid normal, trachea midline, no adenopa thy. Heart--normal S1 and S2. No murmurs, rubs or gallops. Lungs--Decreased breath sounds left base. No respiratory distress, no accessory muscle use. Abdomen--normal bowel sounds and soft. Nontender. Nondistended, no hernias or masses, no organomegaly. Extremities--no cyanosis or clubbing. No edema. Dermatologic--normal skin turgor, normal color, no abnormal lymph nodes, no rash. Neurologic--cranial nerves II through XII grossly intact. Rheumatologic--normal range of motion. Psychiatric--normal affect. Results & Data Results & Data ([facility]) Vital Signs (Past 12 Hours) Vital Signs Temp Pulse Pulse Resp BP BP Pulse Ox 09/26/20 23:13 93 H 16 124/79 95 09/26/20 23:01 93 H 19 97 09/26/20 23:00 91 H 22 124/79 96 09/26/20 22:50 97 H 15 94 09/26/20 22:46 95 H 14 114/73 96 09/26/20 22:40 95 H 26 H 96 09/26/20 22:31 96 H 27 H 96 09/26/20 22:30 94 H 30 H 138/77 95 09/26/20 22:20 94 H 26 H 96 09/26/20 22:15 92 H 26 H 139/81 95 09/26/20 22:10 100 H 20 95 09/26/20 22:05 94 H 31 H 96 09/26/20 22:00 88 27 H 136/80 95 09/26/20 20:43 99.5 F 108 H 16 158/78 H 96 Laboratory Results Laboratory Results WBC 10.28 K/uL (4.8-10.8) 09/26/20 21:45 RBC 4.80 M/uL (4.7-6.1) 09/26/20 21:45 Hgb 14.8 g/dL (14.0-18.0) 09/26/20 21:45 Hct 41.8 % (42-52) L 09/26/20 21:45 MCV 87.1 fL (80-100) 09/26/20 21:45 MCH 30.8 pg (25-34) 09/26/20 21:45 MCHC 35.4 g/dL (32-36) 09/26/20 21:45 RDW Std Deviation 41.2 fL (36.4-46.3) 09/26/20 21:45 RDW Coeff of Kendra 12.9 % (11.5-14.5) 09/26/20 21:45 Plt Count 108 K/uL (130-400) L 09/26/20 21:45 MPV 11.7 fL (7.4-10.4) H 09/26/20 21:45 Immature Gran % (Auto) 0.2 % 09/26/20 21:45 Neut % (Auto) 81.0 % 09/26/20 21:45 Lymph % (Auto) 8.2 % 09/26/20 21:45 Todd % (Auto) 10.4 % 09/26/20 21:45 Eos % (Auto) 0.1 % 09/26/20 21:45 Baso % (Auto) 0.1 % 09/26/20 21:45 Neut # (Auto) 8.33 K/uL (1.4-6.5) H 09/26/20 21:45 Lymph # (Auto) 0.84 K/uL (1.2-3.4) L 09/26/20 21:45 Todd # (Auto) 1.07 K/uL (0.11-0.59) H 09/26/20 21:45 Eos # (Auto) 0.01 K/uL (0-0.5) 09/26/20 21:45 Baso # (Auto) 0.01 K/uL (0-0.2) 09/26/20 21:45 Immature Gran # (Auto) 0.02 K/uL (0.00-0.02) 09/26/20 21:45 Sodium 137 mmol/L (136-145) 09/26/20 21:45 Potassium 3.7 mmol/L (3.5-5.1) 09/26/20 21:45 Chloride 105 mmol/L (98-107) 09/26/20 21:45 Carbon Dioxide 27 mmol/L (21-32) 09/26/20 21:45 Anion Gap 5.0 (3-11) 09/26/20 21:45 BUN 15 mg/dl (7-18) 09/26/20 21:45 Creatinine 0.97 mg/dl (0.6-1.4) 09/26/20 21:45 Est Cr Clr Drug Dosing 125.8 ml/min 09/26/20 21:45 Est GFR ( Amer) 117.6 ml/min 09/26/20 21:45 Est GFR (Non-Af Amer) 101.4 ml/min 09/26/20 21:45 BUN/Creatinine Ratio 15.5 (10-20) 09/26/20 21:45 Glucose 86 mg/dl (70-99) 09/26/20 21:45 Calcium 9.3 mg/dl (8.5-10.1) 09/26/20 21:45 Total Bilirubin 1.1 mg/dl (0.2-1) H 09/26/20 21:45 AST 20 U/L (15-37) 09/26/20 21:45 ALT 30 U/L (12-78) 09/26/20 21:45 Alkaline Phosphatase 66 U/L (45-117) 09/26/20 21:45 Total Protein 7.2 gm/dl (6.4-8.2) 09/26/20 21:45 Albumin 3.8 gm/dl (3.4-5.0) 09/26/20 21:45 Globulin 3.4 gm/dl (2.5-4.0) 09/26/20 21:45 Albumin/Globulin Ratio 1.1 (0.9-2) 09/26/20 21:45 Urine Color Yellow 09/26/20 21:35 Urine Appearance Clear (Clear) 09/26/20 21:35 Urine pH >= 9.0 (4.5-7.5) H 09/26/20 21:35 Ur Specific [place] 1.017 (1.000-1.030) 09/26/20 21:35 Urine Protein Negative (Negative) 09/26/20 21:35 Urine Glucose (UA) Negative (Negative) 09/26/20 21:35 Urine Ketones 2+ (Negative) H 09/26/20 21:35 Urine Blood Negative (Negative) 09/26/20 21:35 Urine Nitrite Negative (Negative) 09/26/20 21:35 Urine Bilirubin Negative (Negative) 09/26/20 21:35 Urine Urobilinogen Negative (Negative) 09/26/20 21:35 Ur Leukocyte Esterase Negative (Negative) 09/26/20 21:35 COVID-19 Eval Order Covid19 at [facility] 09/27/20 00:15 SARS-CoV-2 (PCR) NEGATIVE (Negative) 09/27/20 00:15 Diagnostic Findings [facility] Patient: EFE CAMACHO (Male) : 87 Status: ER Date: 09/26/20 23:41 Room #: History: pain at mid abd and around to back Slices: [phone] Priors: Tech: Pk Brownie @ [phone] Exams: CT ABDOMEN & PELVIS With Contrast Contrast: IV Amt: 83 ml optiray 320 Accession Numbers: [id number] Preliminary Findings Only See Final Report For Complete Findings CT ABDOMEN & PELVIS With Contrast: Normal appendix. No acute abnormality along the GI tract. Airspace opacities in the left lower lobe. Pneumonia or aspiration can cause this appearance. Liver, gallbladder, pancreas, spleen, and kidneys are unremarkable. Radiologist: Andi Robison MD Study ready at 23:49 and initial results transmitted at 23:59 *This report constitutes a preliminary interpretation only. Non-acute findings felt to be unrelated to the clinical presentation may not be discussed in this report. The study will be interpreted and a final report will be generated by the local Radiologist the following shift. To reach the hospital radiology department call [phone]. If a discrepancy is found between the preliminary and final interpretations of this study, please notify us via our Client Portal at [email or web address].You can also fax this report with a description of the discrepancy, or include the final report, to our daytime fax number [phone].If faxing, please indicate the severity of discrepancy using one of the following categories: [ ] 1 - Agree/Informational [ ] 2 - Unlikely to Affect Management [ ] 3 - Possible Eventual Change of Management [ ] 4 - Probable Immediate Change of Management For all other patient related information, please fax us at [phone]. [id number] Code Status & VTE Plan Code Status Full code VTE Prophylaxis Plan VTE Prophylaxis will be ordered: Yes PG Care Time/CCT Total # of Minutes Spent Total Time Spent with Patient: Total time spent is greater than 50% in coordination of care (as documented) at patient's floor/unit and/or counseling patient: Coding Level of Care Code 27066 Initial Inpt Care Lvl 3 Diagnoses Aspiration pneumonia of left lower lobe J69.0 Dysembryoplastic neuroepithelial tumor (DNET) of brain D33.2 Migraine headache G43.909 Seizure disorder G40.909 Esophagitis K20.9
[2020-09-27] MEDS ORDERED: ACETAMINOPHEN 325 MG TAB PO PRN (02:35)
[2020-09-27] MEDS ORDERED: SUMAtriptan succinate 100 MG TAB PO PRN (02:35)
[2020-09-27] MEDS ORDERED: BRIVARACETAM 100 MG PO SCH (02:35)
[2020-09-27] MEDS ORDERED: NSS + 20MEQ KCL 20 MEQ/1,000 ML BAG IV SCH (02:35)
[2020-09-27] MEDS ORDERED: ALBUT/IPRATROP 3MG/0.5MG NEB 3 ML VIAL NEB PRN (02:35)
[2020-09-27] MEDS ORDERED: [UNRECOGNIZED DRUG - OTHER] PO PRN (04:02)
[2020-09-27] MEDS ORDERED: [UNRECOGNIZED DRUG - OTHER] INH PRN (04:04)
[2020-09-27] MEDS ORDERED: ONDANSETRON INJ 2 MG/ML 2 ML VIAL IV PRN (04:49)
[2020-09-27] MEDS: PANTOprazole 40 MG TAB PO SCH ×2 (04:56→07:42)
[2020-09-27] MEDS ORDERED: PIPERACILLIN/TAZOBACTAM 4.5 GM/120 ML BAG IV SCH (06:00)
--- NOTE | 2020-09-27 07:46 | XRay Report ---
SINGLE VIEW CHEST CLINICAL HISTORY: Aspiration pneumonia. FINDINGS: An AP, portable, upright chest radiograph is compared to study dated 08/04/2019. The cardiome diastinal silhouette is unremarkable. Airspace consolidation is seen at the left lung base. The right lung appears clear. No large pleural effusion or pneumothorax is seen. The bony thorax is grossly in tact. IMPRESSION: Left basilar consolidation is consistent with pneumonia/aspiration pneumonitis. Radiograp hic follow-up to resolution is recommended. ACT 112: Negative or not required by law. Electronically signed by: Travon Forte M.D. 09/27/2020 7:45 AM
[2020-09-27] MEDS ORDERED: ONDANSETRON 2 MG OD TAB PO PRN (08:30)
[2020-09-27] MEDS ORDERED: MAGNESIUM OXIDE 400 MG TAB PO SCH (09:00)
[2020-09-27] MEDS ORDERED: MULTIVITAMIN TAB PO SCH (09:00)
[2020-09-27] MEDS ORDERED: DICLOFENAC SODIUM 25 MG TABDR PO SCH (09:00)
[2020-09-27] MEDS ORDERED: DIVALPROEX DELAY RELEASE 500 MG TAB PO SCH (09:00)
[2020-09-27] MEDS ORDERED: OMEGA-3 (PURIFIED FISH OIL) 1 GM CAP PO SCH (09:00)
--- NOTE | 2020-09-27 09:41 | CT Scan Report ---
CT abd pelvis IV con only CLINICAL HISTORY: Pt c/o diffuse abd pain COMPARISON STUDY: August 24, 2020 TECHNIQUE: A dose lowering technique was utilized adhering to the principles of ALARA. CT DOSE: 723.69 mGy.cm FINDINGS: Lower chest: Patchy centrilobular groundglass opacities are seen within lingula and visualized portio n of the left lower lobe which could represent atypical pneumonia. Liver: The contrast-enhanced liver is normal in size, contour, and attenuation. There is no intrahepa tic biliary ductal dilatation. The hepatic veins and portal veins are patent. Gallbladder: Unremarkable. Spleen: Normal in size and attenuation. Pancreas: Unremarkable. Adrenal glands: Unremarkable. Kidneys: There is symmetric renal cortical enhancement. The kidneys are normal in size without hydron ephrosis. Bowel: The small bowel and colon are normal in course and caliber. Appendix is nondilated. Peritoneum: There is no intraperitoneal free air or abdominal ascites. Vasculature: The abdominal aorta is normal in course and caliber. Adenopathy: None. Pelvic viscera: The bladder, and pelvic viscera are unremarkable. Skeletal structures: No destructive osseous lesions are seen. IMPRESSION: 1. Possible multifocal atypical pneumonia involving lingula and the left lower lobe, was not seen on prior. 2. No acute intra-abdominal process. ACT 112: Negative or not required by law. The above report was generated using voice recognition software. It may contain grammatical, syntax o r spelling errors. Electronically signed by: Emilie Vargas DO 09/27/2020 9:40 AM
--- NOTE | 2020-09-27 20:25 | Discharge Summary ---
Date of Service September 27, 2020 Admission HPI Per Admitting Provider The patient is a 35-year-old male with a past medical history including seizure disorder, DNET of brain, anxiety, migraine headache, major depression, tobacco abuse, hepatitis C virus, esophagitis and hypersomnia. He underwent an uneventful colonoscopy earlier in the day, and then went home afterwards. He did eat supper, slept for a while, and when he woke up reports emesis of a large volume of food stuffs, and then became short of breath. For this reason he presented to the ED for assessment. Principal Diagnosis Aspiration (possibly with pneumonia) Discharge Exam Constitutional WD/WN, vitals as above Eyes EOM intact bilaterally; no conjunctival abnormality ENMT external ear and nose normal, oropharynx normal Neck trachea midline, no thyromegaly normal visual inspection Respiratory normal respiratory effort, lungs clear to auscultation no respiratory distress Cardiovascular RRR, no murmur, no edema Gastrointestinal (Abdomen) Inspection/Auscultation: abdomen normal to inspection; abdomen not distended Musculoskeletal no cyanosis or clubbing, extremities motor strength 5/5 Skin no rashes, warm and dry Neurologic moves all extremities and awake Psychiatric Orientation: alert, oriented to person and cooperative Discharge Data Allergies Allergy/AdvReac Type Severity Reaction Status Date / Time No Known Allergies Allergy Verified 09/26/20 14:21 Consultations 09/27/20 00:18 ED Decision to Admit Stat Ordered Studies 09/26/20 22:50 CT abd pelvis IV con only Urgent Hospital Course (1) Aspiration pneumonia of left lower lobe: Aspiration pneumonia of left lower lobe- Patient had an uneventful colonoscopy. He denies difficulty breathing until after he vomited at home. CT of abdomen/pelvis most consistent with aspiration pneumonia of left lower lobe. Continue Zosyn 4.5 g IV every 8 hours Duonebs every 2 hours when necessary. Follow clinical exam [place] fine by discharge. Wanted to leave the hospital. Given stability, lack of fever, and no leukocytosis, discharged on 5 days of Augmentin for a presumed mild aspiration pneumonia. (2) Dysembryoplastic neuroepithelial tumor (DNET) of brain: DNET of brain/seizure disorder/migraine headache- Continue usual home medications of divalproex delayed release and brivaracetam Continue sumatriptan succinate as needed (3) Migraine headache: See above (4) Seizure disorder: See above (5) Esophagitis: Continue pantoprazole 40 mg daily Total Time Total Time Spent Total Time Spent (In Minutes): 35 Discharge Plan Discharge Items Patient Disposition: Home - Self-Care Reason For Visit: ASPIRATION PNEUMONIA Discharge Diagnosis: Small pneumonia -> Likely from some vomiting Activity: Resume your previous activity Non-emergency contact: Primary Care Provider Call non-emergency contact if: your symptoms worsen and your temperature is above 101 Follow-up/Referrals: Chi Burkett [Primary Care Provider] - (PATIENT WILL CALL AND MAKE FOLLOW- UP DISCHARGE APPOINTMENT) Diet: Regular Addtl Attending Provider Instructions: You were admitted to the hospital after an episode of vomiting and fever at home. Our chest x-ray indicated some of the vomit may have gone into your lungs which probably caused the fever. Sometimes we cannot tell between infection vs just s ome fluid that got down in there, but in this case, a few days of antibiotics should help keep your lungs healthy. Pending Studies at Discharge: No Stand-Alone Forms: My [facility], Work/School Release, Smoking Cessation Medications and DC Order Prescriptions: New amoxicillin-pot clavulanate [Augmentin] 875-125 mg tablet 1 tab PO BID Qty: 10 RF: 0 Continued sumatriptan succinate [Imitrex] 100 mg tablet 100 mg PO .COMPLEX PRN (Reason: migraine headache) Qty: 9 RF: 5 divalproex 500 mg tablet,delayed release (DR/EC) 1,000 mg PO BID 30 Days Qty: 120 RF: 5 magnesium oxide 400 mg magnesium capsule 400 mg PO DAILY RF: 0 brivaracetam 50 mg tablet 50 mg PO .COMPLEX Qty: 30 RF: 5 brivaracetam 100 mg tablet 100 mg PO .COMPLEX Qty: 30 RF: 5 pantoprazole 40 mg tablet,delayed release (DR/EC) 40 mg PO BID RF: 0 Marijuana Dry [place] 1 dose inhalation UD PRN (Reason: Seizures) RF: 0 Marijuana Tincture 1 ml PO HS PRN (Reason: Sleep) RF: 0 multivitamin Tablet 1 tab PO DAILY RF: 0 diclofenac sodium 50 mg Tablet,Delayed Release (Dr/Ec) 50 mg PO BID RF: 0 omega-3 fatty acids Capsule 1,000 mg PO DAILY RF: 0 Discharge Orders: Discharge Order (Routine); Ordered 09/27/20 Ordered By: Jackson Cain Admission Data Admit Date/Time: 09/27/20 01:18 Attending Provider: Jackson Cain Admit Provider: Ellis Hawk Primary Care Provider: Chi Burkett Other Providers: Jackson Cain Other Interventions: Discharge Summary Assessment (RN) Last Done: 09/27/20 08:46 Coding Level of Care Code D/C Day Management >30 mins Diagnoses Aspiration pneumonia of left lower lobe J69.0 Dysembryoplastic neuroepithelial tumor (DNET) of brain D33.2 Migraine headache G43.909 Seizure disorder G40.909 Esophagitis K20.9
== END 2020-09-27 10:12 | disposition home or self-care (01) | DRG 179 ==
LOC: ED 20:36 → INTOOBSV 09-27 01:18 → SUATTDRO 09-27 01:18 → 2N 09-27 01:18